=== PATIENT | male | born 1995 | race Caucasian/White ===

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

== ENCOUNTER 2017-12-09 20:25 | Emergency (ER) | payer BC ==
[~2017-12-09] VITALS: Ht 180.3 cm; Wt 112.5 kg
[2017-12-09 20:44] VITALS: BP_SYST 140
--- NOTE | 2017-12-09 21:40 | NUR ---
Patient to ER bed 03 to gown for evaluation. Side rails up. Report given to NADIR Chavira
--- NOTE | 2017-12-09 21:41 | NUR ---
Pt came in brought in by mother with a complant of dizziness and lightheadeness. Pt stated he was drinkning 2L of water when all of a sudden he felt dizzy and lightheaded. No other complaint noted. No fever, headache, shortness of breath noted. Lungs sounds are clear throughout. Safety precaution observed, with side rails up. Will continue to monitor Pt.
--- NOTE | 2017-12-09 21:50 | NUR ---
ISABEL Gtz at bedside for medical evaluation.
[2017-12-09 22:59] VITALS: BP_SYST 138
--- NOTE | 2017-12-09 22:59 | NUR ---
Patient given written and verbal discharge instructions and verbalizes understanding. ER MD Gtz discussed with patient the results and treatment provided. Patient in stable condition. ID arm band removed. Patient educated on pain management and to follow up with PMD. Pain Scale 0/10. Opportunity for questions provided and answered. Medication side effect fact sheet provided.
== END 2017-12-09 22:59 | disposition home or self-care (01) ==
LOC: SED 20:25
DX: E87.70 Fluid overload, unspecified (principal); F41.9 Anxiety disorder, unspecified; R03.0 Elevated blood-pressure reading, without diagnosis of hypertension; Z88.0 Allergy status to penicillin
CPT/HCPCS: 99281

== ENCOUNTER 2018-02-03 13:24 | Emergency (ER) | payer BC ==
[~2018-02-03] VITALS: Ht 165.1 cm; Wt 104.3 kg
[2018-02-03 13:40] VITALS: BP_SYST 131
--- NOTE | 2018-02-03 13:51 | NUR ---
Patient triaged and placed in waiting room. VSS and patient appears in no acute distress at this time. Accompanied by family , awaiting available bed, and MD notified of need for MSE.
[2018-02-03] MEDS ORDERED: ONDANSETRON 4 MG ODT TAB PO ONE (14:00)
--- NOTE | 2018-02-03 14:10 | NUR ---
Tete Thomas [employer]IDENT[employer] SAL[employer] MANAGER evaluating patient at triage room.
[2018-02-03 14:17] LABS: BASOPHILS # (AUTO) 0.2 K/uL (0.0-0.2); BASOPHILS % (AUTO) 1.6 % (0.0-2.0); EOSINOPHILS % (AUTO) 0.1 % (0.0-4.0); HEMATOCRIT 47.8 % (36-54); HEMOGLOBIN 15.9 g/dL (14.0-18.0); LYMPHOCYTES # (AUTO) 1.6 K/uL (1.0-5.5); MEAN CORPUSCULAR HEMOGLOBIN 28 pg (27-31); MEAN CORPUSCULAR HGB CONC 33 % (32-36); MEAN CORPUSCULAR VOLUME 85 fL (79.0-98.0); MONOCYTES # (AUTO) 0.4 K/uL (0.0-1.0); MONOCYTES % (AUTO) 3.9 % (1.7-9.3); NEUTROPHILS # (AUTO) 7.6 K/uL (1.8-7.7); NEUTROPHILS % (AUTO) 78.4 % (40.0-70.0); PLATELET COUNT (AUTO) 212 K/uL (130-430); RED BLOOD CELL COUNT(AUTO) 5.65 MIL/uL (4.2-6.2); RED CELL DISTRIBUTION WIDTH 12.8 % (9.0-15.0); WHITE BLOOD COUNT (AUTO) 9.8 K/uL (4.5-11.0)
[2018-02-03 14:37] LABS: CALCIUM 10.4 mg/dL (8.4-11.0); CREATININE 1.06 mg/dL (0.55-1.30); POTASSIUM 3.7 mmol/L (3.5-5.1)
[2018-02-03 14:41] LABS: ALBUMIN 4.5 g/dL (3.4-4.8); TOTAL BILIRUBIN 0.7 mg/dL (0.0-1.0)
--- NOTE | 2018-02-03 14:41 | NUR ---
Patient to ER equality 1 to [facility] for evaluation. Side rails up. Report given to Paulina SCHMITZ.
--- NOTE | 2018-02-03 14:42 | NUR ---
Pt brought by friend,A&Ox4, pt presents to ER with anxiety, numbness on upper and lower extremities ,also N/V, skin pink and warm, cap refill <3, VS WNL, respirations even and unlabored.
--- NOTE | 2018-02-03 15:07 | NUR ---
Pt on stable condition, VS WNL.
[2018-02-03 15:17] VITALS: BP_SYST 130
--- NOTE | 2018-02-03 15:18 | NUR ---
Patient given written and verbal discharge instructions and verbalizes understanding. ER MD discussed with patient the results and treatment provided. Patient in stable condition. ID arm band removed. Rx of zofran given. Patient educated on pain management and to follow up with PMD. Pain Scale 0/10 . Opportunity for questions provided and answered. Medication side effect fact sheet provided.
== END 2018-02-03 15:17 | disposition home or self-care (01) ==
LOC: SED 13:24
DX: R20.2 Paresthesia of skin (principal); R11.0 Nausea; F41.9 Anxiety disorder, unspecified; R03.0 Elevated blood-pressure reading, without diagnosis of hypertension; Z88.1 Allergy status to other antibiotic agents
CPT/HCPCS: 36415; 80053; 83690; 85025; 99283; Q0162

== ENCOUNTER 2018-10-07 20:12 | Emergency (ER) | payer BC ==
[~2018-10-07] VITALS: Ht 180.3 cm; Wt 106.1 kg
[2018-10-07 20:21] VITALS: BP_SYST 160
[2018-10-07 21:28] LABS: BASOPHILS # (AUTO) 0.1 K/uL (0.0-0.2); BASOPHILS % (AUTO) 0.7 % (0.0-2.0); EOSINOPHILS # (AUTO) 0.1 K/uL (0.0-0.4); HEMATOCRIT 42.3 % (36-54); HEMOGLOBIN 14.3 g/dL (14.0-18.0); LYMPHOCYTES # (AUTO) 2.6 K/uL (1.0-5.5); LYMPHOCYTES % (AUTO) 34.4 % (20.5-51.5); MEAN CORPUSCULAR HEMOGLOBIN 29 pg (27-31); MEAN CORPUSCULAR HGB CONC 34 % (32-36); MEAN CORPUSCULAR VOLUME 86 fL (79.0-98.0); MONOCYTES # (AUTO) 1.1 K/uL (0.0-1.0); MONOCYTES % (AUTO) 13.9 % (1.7-9.3); NEUTROPHILS # (AUTO) 3.8 K/uL (1.8-7.7); PLATELET COUNT (AUTO) 162 K/uL (130-430); RED BLOOD CELL COUNT(AUTO) 4.94 MIL/uL (4.2-6.2); RED CELL DISTRIBUTION WIDTH 13.9 % (9.0-15.0); WHITE BLOOD COUNT (AUTO) 7.7 K/uL (4.8-10.8)
[2018-10-07 21:43] LABS: CALCIUM 8.7 mg/dL (8.4-11.0); CREATININE 0.97 mg/dL (0.55-1.30); POTASSIUM 4.1 mmol/L (3.5-5.1)
[2018-10-07 21:49] LABS: ALBUMIN 3.7 g/dL (3.4-4.8); TOTAL BILIRUBIN 0.3 mg/dL (0.0-1.0)
[2018-10-07 23:20] LABS: BILIRUBIN,URINE NEGATIVE (NEGATIVE); BLOOD, URINE NEGATIVE (NEGATIVE); CLARITY/URINE CLEAR (CLEAR); COLOR,URINE YELLOW (YELLOW); GLUCOSE,URINE NEGATIVE (NEGATIVE); KETONES,URINE TRACE (NEGATIVE); LEUKOCYTE ESTERASE ,URINE NEGATIVE (NEGATIVE); NITRITE, URINE NEGATIVE (NEGATIVE); PH,URINE 6.5 (5.0-8.0); PROTEIN URINE NEGATIVE (NEGATIVE)
[2018-10-08] MEDS ORDERED: KETOROLAC TROMETHAMINE 30 MG VIAL IVP ONE (00:15)
[2018-10-08] MEDS ORDERED: NACL 0.9% 1,000 ML IV ONE (00:15)
[2018-10-08 01:34] VITALS: BP_SYST 152
== END 2018-10-08 01:34 | disposition home or self-care (01) ==
LOC: SED 20:12
DX: R07.89 Other chest pain (principal); F41.9 Anxiety disorder, unspecified; R03.0 Elevated blood-pressure reading, without diagnosis of hypertension; Z88.1 Allergy status to other antibiotic agents
CPT/HCPCS: 36415; 71045; 80053; 81003; 83690; 84484; 85025; 93005; 96374; 99284; J1885; J7030

== ENCOUNTER 2020-11-08 13:42 | Emergency (ER) | payer BC ==
[~2020-11-08] VITALS: Ht 180.3 cm; Wt 117.0 kg
[2020-11-08 13:52] VITALS: BP_SYST 122
[2020-11-08 15:41] LABS: BASOPHILS % (AUTO) 0.3 % (0.0-2.0); EOSINOPHILS % (AUTO) 0.3 % (0.0-4.0); HEMATOCRIT 44.1 % (36-54); LYMPHOCYTES # (AUTO) 2.7 K/uL (1.0-5.5); LYMPHOCYTES % (AUTO) 24.8 % (20.5-51.5); MEAN CORPUSCULAR HEMOGLOBIN 29 pg (27-31); MEAN CORPUSCULAR HGB CONC 34 % (32-36); MEAN CORPUSCULAR VOLUME 86 fL (79.0-98.0); MONOCYTES # (AUTO) 0.8 K/uL (0.0-1.0); MONOCYTES % (AUTO) 7.6 % (1.7-9.3); NEUTROPHILS # (AUTO) 7.3 K/uL (1.8-7.7); PLATELET COUNT (AUTO) 186 K/uL (130-430); RED BLOOD CELL COUNT(AUTO) 5.15 MIL/uL (4.2-6.2); RED CELL DISTRIBUTION WIDTH 13.2 % (9.0-15.0); WHITE BLOOD COUNT (AUTO) 10.9 K/uL (4.8-10.8)
[2020-11-08 16:04] LABS: ANION GAP 6 (5-15); CALCIUM 9.5 mg/dL (8.4-11.0); CHLORIDE 102 mmol/L (98-107); CREATININE 0.91 mg/dL (0.55-1.30); GLUCOSE 94 mg/dL (70-99); SODIUM SERUM 138 mmol/L (136-145); UREA NITROGEN, BLOOD 19 mg/dL (8-21)
[2020-11-08 16:13] LABS: ALANINE AMINOTRANSFERASE 32 U/L (12-78); ALBUMIN 4.1 g/dL (3.4-4.8); ASPARTATE AMINOTRANSFERASE 16 U/L (10-37); TOTAL BILIRUBIN 0.4 mg/dL (0.0-1.0)
[2020-11-08 16:21] LABS: GFR AFRICAN AMERICAN 133 mL/min (>90)
[2020-11-08 17:35] VITALS: BP_SYST 124
== END 2020-11-08 17:35 | disposition home or self-care (01) ==
LOC: SED 13:42
DX: M94.0 Chondrocostal junction syndrome [Tietze] (principal); F41.1 Generalized anxiety disorder; Z88.1 Allergy status to other antibiotic agents
CPT/HCPCS: 36415; 71045; 80053; 84484; 85025; 93005; 99285

== ENCOUNTER 2020-12-28 12:17 | Emergency (ER) | payer BC ==
[~2020-12-28] VITALS: Ht 182.9 cm; Wt 115.2 kg
[2020-12-28 12:27] VITALS: BP_SYST 138
[2020-12-28] MEDS ORDERED: IBUPROFEN 600 MG TABLET PO ONE (12:45)
[2020-12-28] MEDS ORDERED: LORazepam 1 MG TABLET PO ONE (12:45)
[2020-12-28] MEDS ORDERED: NAPR-1169 PO (13:44)
[2020-12-28 13:59] VITALS: BP_SYST 138
== END 2020-12-28 13:50 | disposition home or self-care (01) ==
LOC: SED 12:17
DX: R07.9 Chest pain, unspecified (principal); F41.9 Anxiety disorder, unspecified; Z88.1 Allergy status to other antibiotic agents; Z79.899 Other long term (current) drug therapy
CPT/HCPCS: 71045; 93005; 99283

== ENCOUNTER 2022-01-12 10:37 | Emergency (ER) | payer BC ==
[~2022-01-12] VITALS: Ht 182.9 cm; Wt 126.1 kg
[~2022-01-12 10:37] MED LIST: NAPR-1169 PO
[2022-01-12 10:51] VITALS: BP_SYST 137
--- NOTE | 2022-01-12 10:54 | NUR ---
Patient arrived to hospital ER bed 7 for c/o migraines for past three days. Patient said that he also experiences headaches, generalized body aches, soreness, mouth sores. Face pain. Migraines on right. Patient denies injuring any part of his body. Patient denies PMH. Will continue to monitor.
--- NOTE | 2022-01-12 10:54 | NUR ---
Patient to ER bed 7 to gown for evaluation. Side rails up. Report given to NADIR STRICKLAND.
--- NOTE | 2022-01-12 10:59 | NUR ---
DR ALMONTE AT BESIDE
[2022-01-12] MEDS ORDERED: KETOROLAC TROMETHAMINE 30 MG VIAL IM ONE (11:00)
[2022-01-12] MEDS ORDERED: ACETAMINOPHEN 500 MG TABLET PO ONE (11:00)
[2022-01-12] MEDS ORDERED: METOCLOPRAMIDE HCL 10 MG TABLET PO ONE (11:00)
[2022-01-12 12:30] VITALS: BP_SYST 168
--- NOTE | 2022-01-12 12:30 | NUR ---
Patient given written and verbal discharge instructions and verbalizes understanding. ER MD discussed with patient the results and treatment provided. Patient in stable condition. ID arm band removed. Opportunity for questions provided and answered. Medication side effect fact sheet provided.
== END 2022-01-12 12:30 | disposition home or self-care (01) ==
LOC: SED 10:37
DX: G43.909 Migraine, unspecified, not intractable, without status migrainosus (principal); Z88.1 Allergy status to other antibiotic agents; Z79.899 Other long term (current) drug therapy
CPT/HCPCS: 99283; 96372; J8597; J1885

== ENCOUNTER 2022-09-01 23:21 | Emergency (ER) | payer SELFPAY ==
[~2022-09-01] VITALS: Ht 182.9 cm; Wt 136.1 kg
[2022-09-01 23:21] VITALS: BP_SYST 125; PULSE 77; RESP 20; TEMP 98; O2SAT 97
[2022-09-02] MEDS ORDERED: KETOROLAC TROMETHAMINE 30 MG VIAL IVP ONE (00:15)
[2022-09-02] MEDS ORDERED: IBUP-1971 PO (00:52)
[2022-09-02 00:59] VITALS: BP_SYST 123; PULSE 78; RESP 18; TEMP 97.9; O2SAT 98
== END 2022-09-02 01:00 | disposition home or self-care (01) ==
LOC: SED 23:21
DX: R07.89 Other chest pain (principal); Z88.0 Allergy status to penicillin; Z88.1 Allergy status to other antibiotic agents; Z79.899 Other long term (current) drug therapy
CPT/HCPCS: 99283; 96374; 93005; J1885

== ENCOUNTER 2022-10-20 23:33 | Emergency (ER) | payer MEDICAID ==
[~2022-10-20] VITALS: Ht 182.9 cm; Wt 138.3 kg
[~2022-10-20 23:33] MED LIST changes: +IBUP-1971 PO
[2022-10-20 23:42] VITALS: BP_SYST 129; PULSE 86; RESP 16; TEMP 97.2; O2SAT 97
== END 2022-10-21 00:54 | disposition left against medical advice (07) ==
LOC: SED 23:33
DX: R07.9 Chest pain, unspecified (principal); Z53.21 Procedure and treatment not carried out due to patient leaving prior to being seen by health care provider
CPT/HCPCS: 93005; 99281

== ENCOUNTER 2022-11-07 11:52 | Emergency (ER) | payer MEDICAID ==
[~2022-11-07] VITALS: Ht 185.4 cm; Wt 137.9 kg
[2022-11-07 11:59] VITALS: BP_SYST 154; PULSE 82; RESP 18; TEMP 98.3; O2SAT 96
[2022-11-07 12:40] LABS: BASOPHILS % (AUTO) 0.3 % (0.0-2.0); EOSINOPHILS % (AUTO) 0.4 % (0.0-4.0); HEMATOCRIT 45.3 % (36-54); HEMOGLOBIN 14.8 g/dL (14.0-18.0); LYMPHOCYTES # (AUTO) 2.7 K/uL (1.0-5.5); MEAN CORPUSCULAR HEMOGLOBIN 27 pg (27-31); MEAN CORPUSCULAR HGB CONC 33 % (32-36); MEAN CORPUSCULAR VOLUME 82 fL (79.0-98.0); MONOCYTES # (AUTO) 0.7 K/uL (0.0-1.0); MONOCYTES % (AUTO) 6.3 % (1.7-9.3); NEUTROPHILS # (AUTO) 7.5 K/uL (1.8-7.7); PLATELET COUNT (AUTO) 229 K/uL (130-430); RED BLOOD CELL COUNT(AUTO) 5.53 MIL/uL (4.2-6.2)
[2022-11-07 12:54] LABS: ALANINE AMINOTRANSFERASE 17 U/L (12-78); ALBUMIN 3.8 g/dL (3.4-4.8); ANION GAP 8 (5-15); ASPARTATE AMINOTRANSFERASE 19 U/L (10-37); CALCIUM 9.3 mg/dL (8.4-11.0); CARBON DIOXIDE 26 mmol/L (23-29); CHLORIDE 100 mmol/L (98-107); CREATININE 0.87 mg/dL (0.55-1.30); GFR AFRICAN AMERICAN 138 mL/min (>90); GFR NON AFRICAN-AMERICAN 114 mL/min (>90); GLUCOSE 110 mg/dL (74-106); POTASSIUM 3.7 mmol/L (3.5-5.1); SODIUM SERUM 134 mmol/L (136-145); TOTAL BILIRUBIN 0.5 mg/dL (0.0-1.0); UREA NITROGEN, BLOOD 11 mg/dL (8-21)
[2022-11-07 14:00] VITALS: BP_SYST 154; PULSE 82; RESP 18; TEMP 98.3; O2SAT 96
== END 2022-11-07 14:30 | disposition home or self-care (01) ==
LOC: SED 11:52
DX: R07.9 Chest pain, unspecified (principal); R20.2 Paresthesia of skin; Z88.0 Allergy status to penicillin; Z88.1 Allergy status to other antibiotic agents; Z79.899 Other long term (current) drug therapy
CPT/HCPCS: 36415; 70450-TC; 71045; 76376; 80053; 84484; 85025; 93005; 99285

== ENCOUNTER 2022-12-12 12:24 | Emergency (ER) | payer BC, MEDICAID ==
[~2022-12-12] VITALS: Ht 182.9 cm; Wt 137.9 kg
[2022-12-12 12:35] VITALS: BP_SYST 137; PULSE 67; RESP 16; TEMP 97.5; O2SAT 99
[2022-12-12 13:30] LABS: BASOPHILS % (AUTO) 0.5 % (0.0-2.0); EOSINOPHILS # (AUTO) 0.1 K/uL (0.0-0.4); EOSINOPHILS % (AUTO) 1.1 % (0.0-4.0); HEMATOCRIT 46.6 % (36-54); HEMOGLOBIN 15.5 g/dL (14.0-18.0); LYMPHOCYTES # (AUTO) 2.6 K/uL (1.0-5.5); LYMPHOCYTES % (AUTO) 26.1 % (20.5-51.5); MEAN CORPUSCULAR HEMOGLOBIN 27 pg (27-31); MEAN CORPUSCULAR HGB CONC 33 % (32-36); MEAN CORPUSCULAR VOLUME 82 fL (79.0-98.0); MONOCYTES # (AUTO) 0.6 K/uL (0.0-1.0); MONOCYTES % (AUTO) 6.5 % (1.7-9.3); NEUTROPHILS # (AUTO) 6.5 K/uL (1.8-7.7); NEUTROPHILS % (AUTO) 65.8 % (40.0-70.0); PLATELET COUNT (AUTO) 222 K/uL (130-430); RED BLOOD CELL COUNT(AUTO) 5.72 MIL/uL (4.2-6.2); RED CELL DISTRIBUTION WIDTH 14.1 % (9.0-15.0); WHITE BLOOD COUNT (AUTO) 9.8 K/uL (4.8-10.8)
[2022-12-12 13:46] LABS: ANION GAP 5 (5-15); CALCIUM 9.5 mg/dL (8.4-11.0); CARBON DIOXIDE 29 mmol/L (23-29); CHLORIDE 98 mmol/L (98-107); CREATININE 0.82 mg/dL (0.55-1.30); GFR AFRICAN AMERICAN 147 mL/min (>90); GLUCOSE 116 mg/dL (74-106); SODIUM SERUM 132 mmol/L (136-145); UREA NITROGEN, BLOOD 13 mg/dL (8-21)
[2022-12-12 13:47] LABS: GFR NON AFRICAN-AMERICAN 122 mL/min (>90)
[2022-12-12 13:54] LABS: ALANINE AMINOTRANSFERASE 30 U/L (12-78); ALBUMIN 3.8 g/dL (3.4-4.8); ASPARTATE AMINOTRANSFERASE 17 U/L (10-37); TOTAL BILIRUBIN 0.5 mg/dL (0.0-1.0); TOTAL PROTEIN, SERUM 8.1 g/dL (6.4-8.3)
[2022-12-12 14:20] VITALS: BP_SYST 126; PULSE 69; RESP 16; TEMP 97.7; O2SAT 98
[2022-12-12 15:16] LABS: INFLUENZA TYPE A Negative (NEGATIVE); INFLUENZA TYPE B NEGATIVE (NEGATIVE)
== END 2022-12-12 14:21 | disposition home or self-care (01) ==
LOC: SED 12:24
DX: R07.89 Other chest pain (principal); Z88.0 Allergy status to penicillin; Z88.1 Allergy status to other antibiotic agents; Z79.899 Other long term (current) drug therapy; Z20.822 Contact with and (suspected) exposure to COVID-19
CPT/HCPCS: 36415; 71045; 80053; 84484; 85025; 93005; 99285

== ENCOUNTER 2023-01-10 07:05 | Emergency (ER) | payer SELFPAY ==
[~2023-01-10] VITALS: Ht 182.9 cm; Wt 137.0 kg
[2023-01-10 07:05] VITALS: BP_SYST 116; PULSE 76; RESP 18; TEMP 98; O2SAT 98
[2023-01-10] MEDS ORDERED: ACETAMINOPHEN 500 MG TABLET ONE (07:28)
[2023-01-10] MEDS ORDERED: IBUPROFEN 600 MG TABLET PO ONE (07:30)
[2023-01-10] MEDS ORDERED: ACETAMINOPHEN 500 MG TABLET PO ONE (07:30)
[2023-01-10 07:53] LABS: BASOPHILS % (AUTO) 0.4 % (0.0-2.0); EOSINOPHILS # (AUTO) 0.1 K/uL (0.0-0.4); EOSINOPHILS % (AUTO) 0.9 % (0.0-4.0); HEMOGLOBIN 13.7 g/dL (14.0-18.0); LYMPHOCYTES # (AUTO) 2.4 K/uL (1.0-5.5); LYMPHOCYTES % (AUTO) 28.6 % (20.5-51.5); MEAN CORPUSCULAR HEMOGLOBIN 27 pg (27-31); MEAN CORPUSCULAR HGB CONC 33 % (32-36); MEAN CORPUSCULAR VOLUME 81 fL (79.0-98.0); MONOCYTES # (AUTO) 0.6 K/uL (0.0-1.0); MONOCYTES % (AUTO) 6.7 % (1.7-9.3); NEUTROPHILS # (AUTO) 5.3 K/uL (1.8-7.7); NEUTROPHILS % (AUTO) 63.4 % (40.0-70.0); PLATELET COUNT (AUTO) 214 K/uL (130-430); RED BLOOD CELL COUNT(AUTO) 5.16 MIL/uL (4.2-6.2); RED CELL DISTRIBUTION WIDTH 13.9 % (9.0-15.0); WHITE BLOOD COUNT (AUTO) 8.4 K/uL (4.8-10.8)
[2023-01-10 08:09] LABS: ANION GAP 7 (5-15); CALCIUM 9.6 mg/dL (8.4-11.0); CARBON DIOXIDE 30 mmol/L (23-29); CHLORIDE 101 mmol/L (98-107); GFR AFRICAN AMERICAN 151 mL/min (>90); GLUCOSE 115 mg/dL (74-106); POTASSIUM 3.9 mmol/L (3.5-5.1); SODIUM SERUM 138 mmol/L (136-145); UREA NITROGEN, BLOOD 11 mg/dL (8-21)
[2023-01-10 08:12] LABS: GFR NON AFRICAN-AMERICAN 125 mL/min (>90)
[2023-01-10 08:18] LABS: ALANINE AMINOTRANSFERASE 26 U/L (12-78); ALBUMIN 3.5 g/dL (3.4-4.8); ASPARTATE AMINOTRANSFERASE 19 U/L (10-37); TOTAL BILIRUBIN 0.5 mg/dL (0.0-1.0); TOTAL PROTEIN, SERUM 7.5 g/dL (6.4-8.3)
[2023-01-10 09:03] VITALS: BP_SYST 116; PULSE 76; RESP 18; TEMP 98; O2SAT 98
== END 2023-01-10 09:02 | disposition home or self-care (01) ==
LOC: SED 07:05
DX: R07.9 Chest pain, unspecified (principal); R61 Generalized hyperhidrosis; F41.9 Anxiety disorder, unspecified; Z88.0 Allergy status to penicillin; Z88.1 Allergy status to other antibiotic agents; Z79.899 Other long term (current) drug therapy
CPT/HCPCS: 36415; 71045; 80053; 84484; 85025; 93005; 99285

== ENCOUNTER 2023-03-06 14:14 | Emergency (ER) | payer SELFPAY ==
[~2023-03-06] VITALS: Ht 182.9 cm; Wt 128.8 kg
[2023-03-06 14:27] VITALS: BP_SYST 126; PULSE 107; RESP 20; TEMP 97; O2SAT 95
[2023-03-06 15:19] LABS: INFLUENZA TYPE B NEGATIVE (NEGATIVE)
[2023-03-06] MEDS ORDERED: ACET-2634 PO (15:27)
[2023-03-06 15:33] LABS: INFLUENZA TYPE A POSITIVE (NEGATIVE)
[2023-03-06 16:11] VITALS: BP_SYST 126; PULSE 107; RESP 20; TEMP 97; O2SAT 95
== END 2023-03-06 16:08 | disposition home or self-care (01) ==
LOC: SED 14:14
DX: J10.1 Influenza due to other identified influenza virus with other respiratory manifestations (principal); K14.1 Geographic tongue; R50.9 Fever, unspecified; R05.9 Cough, unspecified; R11.0 Nausea; Z88.0 Allergy status to penicillin; Z88.1 Allergy status to other antibiotic agents; Z79.899 Other long term (current) drug therapy; Z20.822 Contact with and (suspected) exposure to COVID-19
CPT/HCPCS: 36415; 71045; 99284

== ENCOUNTER 2023-07-27 12:50 | Emergency (ER) | payer BC ==
[~2023-07-27] VITALS: Ht 182.9 cm; Wt 117.0 kg
[~2023-07-27 12:50] MED LIST changes: +ACET-2634 PO
[2023-07-27 13:03] VITALS: BP_SYST 131; PULSE 67; RESP 17; TEMP 97; O2SAT 97
[2023-07-27 13:21] LABS: BASOPHILS % (AUTO) 0.4 % (0.0-2.0); EOSINOPHILS # (AUTO) 0.1 K/uL (0.0-0.4); EOSINOPHILS % (AUTO) 0.7 % (0.0-4.0); HEMATOCRIT 43.2 % (36-54); HEMOGLOBIN 14.7 g/dL (14.0-18.0); LYMPHOCYTES # (AUTO) 2.6 K/uL (1.0-5.5); LYMPHOCYTES % (AUTO) 29.2 % (20.5-51.5); MEAN CORPUSCULAR HEMOGLOBIN 28 pg (27-31); MEAN CORPUSCULAR HGB CONC 34 % (32-36); MEAN CORPUSCULAR VOLUME 82 fL (79.0-98.0); MONOCYTES # (AUTO) 0.5 K/uL (0.0-1.0); NEUTROPHILS # (AUTO) 5.8 K/uL (1.8-7.7); NEUTROPHILS % (AUTO) 64.7 % (40.0-70.0); PLATELET COUNT (AUTO) 204 K/uL (130-430); RED BLOOD CELL COUNT(AUTO) 5.29 MIL/uL (4.2-6.2); RED CELL DISTRIBUTION WIDTH 13.6 % (9.0-15.0)
[2023-07-27 13:50] LABS: ANION GAP 7 (5-15); CALCIUM 8.9 mg/dL (8.4-11.0); CARBON DIOXIDE 31 mmol/L (23-29); CHLORIDE 102 mmol/L (98-107); GFR AFRICAN AMERICAN 150 mL/min (>90); GFR NON AFRICAN-AMERICAN 124 mL/min (>90); GLUCOSE 103 mg/dL (74-106); POTASSIUM 3.9 mmol/L (3.5-5.1); SODIUM SERUM 140 mmol/L (136-145); UREA NITROGEN, BLOOD 12 mg/dL (8-21)
[2023-07-27 14:54] VITALS: BP_SYST 131; PULSE 67; RESP 17; TEMP 97; O2SAT 97
== END 2023-07-27 14:56 | disposition home or self-care (01) ==
LOC: SED 12:50
DX: R07.9 Chest pain, unspecified (principal); R03.0 Elevated blood-pressure reading, without diagnosis of hypertension; F41.9 Anxiety disorder, unspecified; G43.909 Migraine, unspecified, not intractable, without status migrainosus; E78.5 Hyperlipidemia, unspecified; F32.A Depression, unspecified; Z88.0 Allergy status to penicillin; Z88.1 Allergy status to other antibiotic agents; Z79.899 Other long term (current) drug therapy
CPT/HCPCS: 36415; 71045; 80048; 84484; 85025; 93005; 99285